=== PATIENT | male | born 1995 | race Two or more races ===

== ENCOUNTER 2017-03-10 12:47 | Emergency (ER) | payer MEDICAID ==
[2017-03-10 12:52] VITALS: RESP 18; O2SAT 98
[2017-03-10 13:24] LABS: PLATELET COUNT 251 10^3/uL (150-400)
[2017-03-10] MEDS ORDERED: NS 1,000 ML IV ONE (13:27)
--- NOTE | 2017-03-10 13:31 | EDPHY ---
General Narrative: CHIEF COMPLAINT: Abdominal pain HISTORY OF PRESENT ILLNESS: Patient presents with complaints of left lower quadrant abdominal pain. This started 9:00 a.m. abruptly. [id number] pain isolated to this area. He also had a painful urination soon after this. The urine appeared pain or blood tinged to him. He has no flank pain. No fever. No nausea or vomiting. No upper abdominal pain. No right lower quadrant abdominal pain. It is worse with palpation Valsalva. Minimally worse with movement. Improved at rest. Does not radiate. No abdominal pathology or history. No abdominal surgeries. No other associated complaints or modifying factors. REVIEW OF SYSTEMS: Ten systems reviewed and are negative unless otherwise noted in the HPI PCP: None SPECIALISTS: None PAST MEDICAL HISTORY: None PAST SURGICAL HISTORY: None SOCIAL HISTORY: [employer] student. Originally from [place] FAMILY HISTORY: Noncontributory EXAMINATION General Appearance: Alert, no distress Head: normocephalic, atraumatic Eyes: Pupils equal and round, no conjunctival pallor or injection ENT, Mouth: Mucous membranes moist Neck: Normal inspection, supple, non-tender Respiratory: Lungs are clear to auscultation. No wheeze, rhonchi or crackles Cardiovascular: Regular rate and rhythm. No murmur Gastrointestinal: Abdomen is soft and nondistended. No tympany rigidity. There is mild left lower quadrant point tenderness. There is firmness of the rectus abdominus muscle. No guarding. No CVA tenderness Back: non-tender, no bony abnormalities Neurological: A&O, nonfocal, normal gait Skin: Warm and dry, no rash. No petechiae or purpura Extremities: Nontender, no pedal edema Psychiatric: Mood and affect normal DIFFERENTIAL DIAGNOSES: Including but not limited to rectus sheath hematoma, rectus abdominis spasm, abdominal mass, constipation, colitis, diverticulitis, ureteral stone MDM: 1:50 p.m. Left lower quadrant abdominal pain. Examination is nonacute. He appears to have left rectus abdominus spasm or pain. This is reproduce with contraction of the rectus abdominis muscle. His abdomen is soft and nontender otherwise. Laboratory studies are reassuring. Mildly dehydrated by specific gravity of urine, thus I have ordered IV fluid resuscitation. I do not feel he warrants emergent imaging at this time. Hydrate and re-evaluate. I will discuss with attending physician 2:10 p.m. This case discussed with Dr. Kilpatrick. She recommends renal ultrasound Toradol. These have been ordered. 2:50 p.m. Notified by radiologist Dr. Denny. Renal ultrasound reveals no acute findings. 3:20 p.m. Patient re-evaluated. He is feeling much better after the toradol. We discussed the possibility of recently passed stone, muscle spasm and other etiologies. He is resting comfortably in no acute distress. No vomiting. No significant pain. He is comfortable being discharged home at this time. I do feel he is stable to do so. We discussed anti-inflammatories and short course of muscle relaxant , as I suspect this may be a musculoskeletal spasm or pain. We discussed ED precautions. We discussed increasing fluid intake. He is comfortable this plan and discharged home stable condition. SUPERVISION: Patient was independently examined, but I discussed the case with my primary supervising physician Dr. Kilpatrick - History Smoking Status: Current every day smoker - Objective Vital Signs: Initial Vital Signs Temperature (C) 98.4 F 03/10/17 12:49 Heart Rate 97 03/10/17 12:49 Respiratory Rate 18 03/10/17 12:49 Blood Pressure 128/77 H 03/10/17 12:49 O2 Sat (%) 98 03/10/17 12:49 O2 Delivery Mode Room Air Allergies/Adverse Reactions: No Known Allergies Allergy (Verified 03/10/17 12:49) Home Medications: Medication Instructions Recorded CYCLOBENZAPRINE HCL [Flexeril] 5 mg PO TIDPRN PRN #6 tab 03/10/17 Laboratory Results: Laboratory Results 03/10/17 12:15 03/10/17 12:15 03/10/17 03/10/17 03/10/17 12:53 12:15 12:15 WBC 8.70 10^3/uL 10^3/uL (3.80-9.50) RBC 6.08 10^6/uL 10^6/uL (4.40-6.38) Hgb 17.0 g/dL g/dL (13.7-17.5) Hct 49.5 % % (40.0-51.0) MCV 81.4 fL L fL (81.5-99.8) MCH 28.0 pg pg (27.9-34.1) MCHC 34.3 g/dL g/dL (32.4-36.7) RDW 13.2 % % (11.5-15.2) Plt Count 251 10^3/uL 10^3/uL (150-400) MPV 10.5 fL fL (8.7-11.7) Neut % (Auto) 69.9 % % (39.3-74.2) Lymph % (Auto) 22.3 % % (15.0-45.0) Leon % (Auto) 6.1 % % (4.5-13.0) Eos % (Auto) 1.0 % % (0.6-7.6) Baso % (Auto) 0.5 % % (0.3-1.7) Nucleat RBC Rel Count 0.0 % % (0.0-0.2) Absolute Neuts (auto) 6.08 10^3/uL 10^3/uL (1.70-6.50) Absolute Lymphs (auto) 1.94 10^3/uL 10^3/uL (1.00-3.00) Absolute Monos (auto) 0.53 10^3/uL 10^3/uL (0.30-0.80) Absolute Eos (auto) 0.09 10^3/uL 10^3/uL (0.03-0.40) Absolute Basos (auto) 0.04 10^3/uL 10^3/uL (0.02-0.10) Absolute Nucleated RBC 0.00 10^3/uL 10^3/uL (0-0.01) Immature Gran % 0.2 % % (0.0-1.1) Immature Gran # 0.02 10^3/uL 10^3/uL (0.00-0.10) Sodium 144 mEq/L mEq/L (135-145) Potassium 3.9 mEq/L mEq/L (3.5-5.2) Chloride 104 mEq/L mEq/L (97-110) Carbon Dioxide 25 mEq/l mEq/l (22-31) Anion Gap 15 mEq/L mEq/L (8-16) BUN 15 mg/dL mg/dL (7-23) Creatinine 0.9 mg/dL mg/dL (0.7-1.3) Estimated GFR > 60 Glucose 126 mg/dL H mg/dL (70-100) Calcium 9.9 mg/dL mg/dL (8.5-10.4) Total Bilirubin 1.2 mg/dL mg/dL (0.1-1.4) Conjugated Bilirubin 0.3 mg/dL mg/dL (0.0-0.5) Unconjugated Bilirubin 0.9 mg/dL mg/dL (0.0-1.1) AST 23 IU/L IU/L (17-59) ALT 30 IU/L IU/L (21-72) Alkaline Phosphatase 72 IU/L IU/L (38-126) Total Protein 7.2 g/dL g/dL (6.3-8.2) Albumin 4.6 g/dL g/dL (3.5-5.0) Lipase 67 IU/L IU/L (23-300) Urine Color GIN Urine Appearance HAZY Urine pH 5.0 (5.0-7.5) Ur Specific [place] 1.033 H (1.002-1.030) Urine Protein 1+ H (NEGATIVE) Urine Ketones TRACE H (NEGATIVE) Urine Blood NEGATIVE (NEGATIVE) Urine Nitrate NEGATIVE (NEGATIVE) Urine Bilirubin NEGATIVE (NEGATIVE) Urine Urobilinogen 4.0 EU H EU (0.2-1.0) Ur Leukocyte Esterase NEGATIVE (NEGATIVE) Urine RBC NONE SEEN /hpf /hpf (0-3) Urine WBC 1-3 /hpf /hpf (0-3) Ur Epithelial Cells TRACE /lpf /lpf (NONE-1+) Hyaline Casts 5-15 /lpf /lpf (0-1) Urine Mucus 4+ /lpf H /lpf (NONE-1+) Urine Glucose NEGATIVE (NEGATIVE) Medications Given: Discontinued Medications Sodium Chloride (Ns) 1,000 mls @ 0 mls/hr IV EDNOW ONE; Wide Open PRN Reason: Protocol Stop: 03/10/17 13:28 Last Admin: 03/10/17 13:37 Dose: 1,000 mls Departure - Departure Disposition: Home, Routine, Self-Care Clinical Impression: Dehydration Abdominal pain Qualifiers: Abdominal location: left lower quadrant Qualified Code(s): R10.32 - Left lower quadrant pain Condition: Good Instructions: Acute Abdominal Pain (ED), Dehydration (ED) Additional Instructions: 1. Increase fluid intake 2. Ibuprofen 600 mg every 8 hr as needed for the next 2-3 days 3. Flexeril as prescribed as needed 4. ED precautions as discussed Referrals: [facility] [Clinic] - As per Instructions Tj Staples DO [Doctor of Osteopathy] - As per Instructions Stand Alone Forms: School Excuse Prescriptions: CYCLOBENZAPRINE HCL [Flexeril] 5 mg PO TIDPRN PRN #6 tab PRN Reason: Spasms
[2017-03-10] MEDS ORDERED: KETOROLAC 30 MG/1 ML SDV IVP ONE (14:09)
[2017-03-10 15:37] VITALS: BP 126/83; PULSE 73; TEMP 98.1
== END 2017-03-10 15:37 | disposition home or self-care (01) ==
DX: R10.32 Left lower quadrant pain (principal); E86.0 Dehydration; F17.200 Nicotine dependence, unspecified, uncomplicated
CPT/HCPCS: 96374; J1885